=== PATIENT | female | born 1980 | race Caucasian/White ===

== ENCOUNTER 2019-01-19 10:32 | Day surgery (SDC) | payer OTHER ==
[2019-01-19] MEDS ORDERED: LACTATED RINGERS 1,000 ML IV ONE (10:45)
[2019-01-19] MEDS ORDERED: fentaNYL 250 MCG/5 ML VIAL IVP ONE (12:05)
[2019-01-19] MEDS ORDERED: MIDAZOLAM 2 MG/2 ML VIAL IVP ONE (12:05)
[2019-01-19 12:42] VITALS: BP 119/79
== END 2019-01-19 10:33 | disposition home or self-care (01) ==
LOC: SDS 10:32
PROVIDERS: ATTEND Internal Medicine Gastroenterology
PROC: 0DBP8ZZ Excision of Rectum, Via Natural or Artificial Opening Endoscopic (ICD-10-PCS; principal; 2019-01-19 12:00)
DX: Z12.11 Encounter for screening for malignant neoplasm of colon (principal); D12.8 Benign neoplasm of rectum; Z80.0 Family history of malignant neoplasm of digestive organs; E66.9 Obesity, unspecified; Z68.35 Body mass index [BMI] 35.0-35.9, adult; L71.9 Rosacea, unspecified
CPT/HCPCS: 45380; J3010; J7120